=== PATIENT | female | born 1965 ===

== ENCOUNTER 2017-07-12 11:07 | Emergency (ER) | payer BC ==
[2017-07-12 11:18] VITALS: BMI 24.6
[2017-07-12 11:20] VITALS: RESP 18; TEMP 97.7
[2017-07-12] MEDS ORDERED: Sodium Chloride 0.9% 1,000 ML IV STA (11:34)
[2017-07-12 12:25] LABS: BASO # 0.02 K/mm3 (0.0-2.0); BASO % 0.4 % (0.0-3.0); EOS % 0.6 % (1.5-5.0); GRAN # 3.14 (1.4-6.5); GRAN % 62.1 % (50.0-68.0); HEMOGLOBIN 13.1 g/dL (12.0-16.0); LYMPH # 1.6 (1.2-3.4); LYMPH % 31.4 % (22.0-35.0); MEAN CELL VOLUME 83.2 fl (80.0-105.0); MEAN CORPUSCULAR HEMOGLOBIN 28.7 pg (25.0-35.0); MEAN CORPUSCULAR HGB CONC 34.5 g/dl (31.0-37.0); MEAN PLATELET VOLUME 9.2 fl (7.0-11.0); MONO # 0.3 (0.1-0.6); MONO % 5.5 % (1.0-6.0); RBC 4.57 10^6/uL (3.5-6.1); RED CELL DISTRIBUTION WIDTH 12.7 % (11.5-14.5); URINE BILIRUBIN NEGATIVE (NEGATIVE); URINE BLOOD NEGATIVE (NEGATIVE); URINE GLUCOSE (UA) NEGATIVE (NEGATIVE); URINE LEUKOCYTE ESTERASE NEGATIVE Leu/uL (NEGATIVE); URINE PROTEIN NEGATIVE mg/dL (<30 mg/dL); URINE UROBILINOGEN 0.2 E.U./dL (<1 E.U./dL); WHITE BLOOD COUNT 5.1 10^3/ul (4.5-11.0)
[2017-07-12 12:29] LABS: URINE APPEARANCE CLEAR (CLEAR); URINE COLOR YELLOW (YELLOW)
[2017-07-12 12:31] LABS: ALB/GLOB RATIO 1.5 (1.1-1.8); ALBUMIN 4.2 g/dL (3.0-4.8); ALT/SGPT 28 U/L (7-56); AST/SGOT 16 U/L (14-36); BLOOD UREA NITROGEN 11 mg/dL (7-21); CALCIUM 8.9 mg/dL (8.4-10.5); GFR AFRICAN-AMERICAN > 60; GFR NON-AFRICAN AMERICAN > 60
[2017-07-12 12:41] LABS: TROPONIN I < 0.01 ng/mL
--- NOTE | 2017-07-12 12:45 | RAD ---
HISTORY: malaise, sick contact, r/o PNA COMPARISON: No prior. TECHNIQUE: Chest PA and lateral FINDINGS: LUNGS: No active pulmonary disease. PLEURA: No significant pleural effusion identified. No pneumothorax apparent. CARDIOVASCULAR: Normal. OSSEOUS STRUCTURES: No significant abnormalities. VISUALIZED UPPER ABDOMEN: Normal. OTHER FINDINGS: None. IMPRESSION: No active disease.
[2017-07-12 13:07] VITALS: PULSE 68
--- NOTE | 2017-07-12 13:42 | ED PDOC ---
Arrival/HPI - General Chief Complaint: High Blood Pressure Time Seen by Provider: 07/12/17 11:17 Historian: Patient, Spouse - History of Present Illness Narrative History of Present Illness (Text): 07/12/17 11:32 This is a 52 yo F with PMH of Epilepsy controlled on Keppra and Lamictal, and Hysterectomy who presents with complaint of elevated blood pressure and malaise. As per patient, no history of HTN, but last time she had a seizure, she was also found to have an elevated BP (systolic 200's), so she is worried there may be an association. 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 She denies any illnesses spreading at her half-way, but does admit to an ill child at home with fever > 101F. Admits to malaise, lightheadedness ( since resolved), and a brief instance of bilateral chest discomfort (lasting approx 15 seconds). Also admits to urinary frequency and increased PO water intake as a result today. Denies chills, fever, shortness of breath, nausea, emesis, focal weakness, room spinning, bowel/bladder incontinence, tongue bitting, dysuria, hematuria. Reports compliant with home meds. All other ROS in 12-system review negative. PMH: as above PSH: denies Fam Hx: denies Soc Hx: denies tobacco, alcohol, illicits; works in half-way, lives with and 2 children PMD: Dr. Penny Past Medical History - Infectious Disease Hx of Infectious Diseases: None - Tetanus Immunization Tetanus Immunization: Unknown - Cardiac Hx Cardiac Disorders: No - Pulmonary Hx Respiratory Disorders: No - Neurological Hx Seizures: Yes - HEENT Hx HEENT Disorder: No - Renal Hx Renal Disorder: No - Endocrine/Metabolic Hx Endocrine Disorders: No - Hematological/Oncological Hx Blood Disorders: No - Integumentary Hx Dermatological Disorder: No - Musculoskeletal/Rheumatological Hx Musculoskeletal Disorders: No - Gastrointestinal Hx Gastrointestinal Disorders: No - Genitourinary/Gynecological Hx Genitourinary Disorders: No - Psychiatric Hx Psychophysiologic Disorder: No Hx Substance Use: No - Surgical History Hx Section: Yes (x2) Hx Hysterectomy: Yes - Anesthesia Hx Anesthesia: Yes Hx Anesthesia Reactions: No Hx Malignant Hyperthermia: No - Suicidal Assessment Feels Threatened In Home Enviroment: No Family/Social History Family/Social History: No Known Family HX Smoking Status: Never Smoked Hx Alcohol Use: No Hx Substance Use: No Allergies/Home Meds Allergies/Adverse Reactions: Allergies FISH Allergy (Verified 06/08/17 11:58) REDNESS Home Medications: Home Meds Medication Instructions Recorded Confirmed Lamotrigine 250 mg PO BID 09/04/14 07/12/17 Aspirin [Aspirin Chewable] 1 tab PO DAILY 07/12/17 07/12/17 Levetiracetam [Keppra] 750 mg PO BID 07/12/17 07/12/17 Review of Systems - Physician Review All systems were reviewed & negative as marked: Yes (as per HPI) Physical Exam Vital Signs Reviewed: Yes Vital Signs Temp Pulse Resp BP Pulse Ox 07/12/17 13:07 68 18 147/90 99 07/12/17 13:02 63 147/90 07/12/17 11:19 97.7 F 73 18 166/97 H 99 Temperature: Afebrile Blood Pressure: Hypertensive Pulse: Regular Respiratory Rate: Normal Appearance: Positive for: Well-Appearing, Non-Toxic, Comfortable Pain Distress: None Mental Status: Positive for: Alert and Oriented X 3 - Systems Exam Head: Present: Atraumatic, Normocephalic Pupils: No: Pinpoint Extroacular Muscles: Present: EOMI Conjunctiva: Present: Normal. No: Injected, Icteric Mouth: Present: Moist Mucous Membranes, Normal Lips, Normal Tounge, Normal Teeth. No: Drooling, Trismus Nose (External): Present: Atraumatic. No: Abrasion, Laceration Nose (Internal): Present: No Active Bleeding. No: Epistaxis Neck: Present: Normal Range of Motion. No: JVD Respiratory/Chest: Present: Clear to Auscultation, Good Air Exchange. No: Respiratory Distress, Accessory Muscle Use, Wheezes, Rales, Rhonchi Cardiovascular: Present: Regular Rate and Rhythm, Normal S1, S2. No: Murmurs, Irregular Rhythm, Tachycardic, Bradycardic Abdomen: Present: Normal Bowel Sounds. No: Tenderness, Distention Back: Present: Normal Inspection Upper Extremity: Present: Normal Inspection, Normal ROM, NORMAL PULSES. No: Cyanosis, Edema, Tenderness, Swelling, Erythema Lower Extremity: Present: Normal Inspection, NORMAL PULSES, Normal ROM. No: Edema, CALF TENDERNESS, Cyanosis, Tenderness, Swelling, Erythema Neurological: Present: GCS=15, Speech Normal, Motor Func Grossly Intact, Normal Sensory Function Skin: Present: Warm, Dry, Normal Color. No: Rashes Psychiatric: Present: Alert, Oriented x 3, Normal Insight, Normal Concentration , Normal Affect, Normal Mood Medical Decision Making ED Course and Treatment: 07/12/17 11:46 Ddx: HTN urgency vs Anxiety vs viral illness BP 160's systolic at time of exam, but likely acute elevation, possibly 2/2 malaise CBC, CMP, Mg, Phos, Trop ordered CXR to rule out PNA given sick contacts EKG to r/o arrhythmia Lisinopril 10mg x1 PO ordered for elevated BP NS 1L IVF ordered for possible dehydration UA to r/o UTI given urinary frequency. 07/12/17 13:51 Labs unremarkable, not suggestive of infectious process UA unremarkable EKG NSR with normal intervals CXR negative BP improved to systolic 140s Improvement of symptoms as per patient Will discharge to home, follow up with PMD within 1 week of discharge. Encourage PO fluid intake for next 2-3 days, tylenol as needed for malaise. Patient expresses understanding and agreement with plan. Patient seen, reviewed, and discussed with attending, Dr. Marquez Re-evaluation Time: 13:00 Reassessment Condition: Re-examined, Improved - Lab Interpretations Lab Results: 07/12/17 12:16 07/12/17 12:16 Lab Results 07/12/17 12:16: Sodium 141, Potassium 4.0, Chloride 102, Carbon Dioxide 29, Anion Gap 14, BUN 11, Creatinine 0.7, Est GFR ( Amer) > 60, Est GFR (Non- Af Amer) > 60, Random Glucose 82, Calcium 8.9, Phosphorus 3.1, Magnesium 2.0, Total Bilirubin 0.2, AST 16, ALT 28, Alkaline Phosphatase 62, Troponin I < 0.01 , Total Protein 7.0, Albumin 4.2, Globulin 2.8, Albumin/Globulin Ratio 1.5 07/12/17 12:16: Urine Color Yellow, Urine Appearance Clear, Urine pH 6.0, Ur Specific [place] <= 1.005, Urine Protein Negative, Urine Glucose (UA) Negative, Urine Ketones Negative, Urine Blood Negative, Urine Nitrate Negative, Urine Bilirubin Negative, Urine Urobilinogen 0.2, Ur Leukocyte Esterase Negative 07/12/17 12:16: WBC 5.1, RBC 4.57, Hgb 13.1, Hct 38.0, MCV 83.2, MCH 28.7, MCHC 34.5, RDW 12.7, Plt Count 192, MPV 9.2, Gran % 62.1, Lymph % (Auto) 31.4, [place] % (Auto) 5.5, Eos % (Auto) 0.6 L, Baso % (Auto) 0.4, Gran # 3.14, Lymph # (Auto ) 1.6, [place] # (Auto) 0.3, Eos # (Auto) 0.0, Baso # (Auto) 0.02 - RAD Interpretation Radiology Orders: 07/12/17 11:34 CHEST TWO VIEWS (PA/LAT) [RAD] Stat - Medication Orders Current Medication Orders: Sodium Chloride (Sodium Chloride 0.9%) 1,000 mls @ 250 mls/hr IV .Q4H STA Stop: 07/12/17 15:33 Last Admin: 07/12/17 13:03 Dose: 250 mls/hr eMAR Start Stop Document 07/12/17 13:03 GMD (Rec: 07/12/17 13:03 GMD [id number]) Intravenous Solution Start Date 07/12/17 Start Time 13:03 End Date 07/12/17 End time 17:03 Total Infusion Time 240 Lisinopril (Zestril) 10 mg PO DAILY [facility] Last Admin: 07/12/17 13:02 Dose: 10 mg MAR Pulse and Blood Pressure Document 07/12/17 13:02 GMD (Rec: 07/12/17 13:03 GMD [id number]) Pulse Pulse Rate (60-90) 63 Blood Pressure Blood Pressure (100/60-150/90) 147/90 Disposition/Present on Arrival - Present on Arrival Any Indicators Present on Arrival: No History of DVT/PE: No History of Uncontrolled Diabetes: No Urinary Catheter: No History of Decub. Ulcer: No History Surgical Site Infection Following: None - Disposition Have Diagnosis and Disposition been Completed?: Yes Diagnosis: Elevated blood pressure, situational, Malaise, Viral syndrome Disposition: HOME/ ROUTINE Disposition Time: 13:55 Patient Plan: Discharge Condition: GOOD Discharge Instructions (ExitCare): High Blood Pressure in Adults, Viral Syndrome (DC) Additional Instructions: [place] [facility] for your elevated blood pressure and general sense of malaise. Your workup was not indicative of any acute infectious or physiologic causes of elevated blood pressure. There is a possibility you have a viral illness, obtained from either sick contacts at home or from your working environment; if so, these typical resolve on their own within a few days. Take tylenol as needed for malaise and drink plenty of fluids. Your blood pressure has also improved after some IV fluids and a single dose of a blood pressure medication (Lisinopril). Your elevated blood pressure was most likely a stress reaction from not feeling well. Please follow up with your PMD within 1 week of discharge. Please return to a hospital if you experience worsening or newly concerning symptoms. Referrals: Nba Penny MD [Primary Care Provider] - Follow up with primary Forms: [facility] ([place]), WORK NOTE
[2017-07-12 14:48] VITALS: BP 141/80; O2SAT 100
--- NOTE | 2017-07-12 16:22 | CARD ---
APPROVED REPORT EKG Measurement Heart [id number] <Conclusion> Normal sinus rhythm NSSTW changes
== END 2017-07-12 14:56 | disposition home or self-care (01) ==
LOC: ED 11:07
DX: B34.9 Viral infection, unspecified (principal); R53.81 Other malaise; R03.0 Elevated blood-pressure reading, without diagnosis of hypertension
CPT/HCPCS: 71046; 80053; 81003; 83735; 84100; 84484; 85025; 93005; 96360; 96361; 99285; J7030